=== PATIENT | male | born 1995 | race Caucasian/White ===

== ENCOUNTER 2020-12-11 12:10 | Emergency (ER) | payer OTHER ==
[~2020-12-11] VITALS: Ht 167.6 cm; Wt 56.7 kg
[~2020-12-11 12:10] MED LIST: IBUP600 PO; PENVK500 PO
== END 2020-12-11 15:50 | disposition home or self-care (01) ==
LOC: ER 12:10
DX: S61.214A Laceration without foreign body of right ring finger without damage to nail, initial encounter (principal); Z23 Encounter for immunization; W27.4XXA Contact with kitchen utensil, initial encounter; Y93.G9 Activity, other involving cooking and grilling; Y99.0 Civilian activity done for income or pay
CPT/HCPCS: 12002; 73140; 90471; 90714; 99283-25

== ENCOUNTER 2020-12-18 08:52 | Emergency (ER) | payer OTHER ==
[~2020-12-18] VITALS: Ht 167.6 cm; Wt 56.7 kg
== END 2020-12-18 09:53 | disposition home or self-care (01) ==
LOC: ER 08:52
DX: S61.214D Laceration without foreign body of right ring finger without damage to nail, subsequent encounter (principal); Z91.048 Other nonmedicinal substance allergy status

== ENCOUNTER 2020-12-24 09:28 | Emergency (ER) | payer OTHER ==
[~2020-12-24] VITALS: Ht 167.6 cm; Wt 56.7 kg
== END 2020-12-24 10:19 | disposition home or self-care (01) ==
LOC: ER 09:28
DX: S61.214D Laceration without foreign body of right ring finger without damage to nail, subsequent encounter (principal); Z91.048 Other nonmedicinal substance allergy status
CPT/HCPCS: 99282